=== PATIENT | male | born 1965 | race Caucasian/White ===

== ENCOUNTER 2017-10-20 15:56 | Emergency (ER) | payer OTHER, SELFPAY ==
[2017-10-20 15:57] VITALS: BP 127/74; PULSE 60; RESP 16; TEMP 36.6; O2SAT 98; BMI 30.9
--- NOTE | 2017-10-20 16:16 | VDLE_ITS ---
Reason For Study: pain RIGHT LEFT CFV is compressible, spontaneous, phasic, GSV is normal. competent and demonstrates normal CFV is compressible, spontaneous, phasic, augmentation. competent, and demonstrates normal Procedure augmentation. Exam performed portable in ED. FV is compressible, spontaneous, phasic, The exam was diagnostic. competent and demonstrates normal A preliminary report was called and/or faxed augmentation. to Dr. Uribe. POP V is compressible, spontaneous, phasic, competent and demonstrates normal augmentation. T/P Trunk is compressible. PTV is compressible. LT PerV is compressible. Interpretation Summary Deep veins of the left lower extremity are patent and compressible segmentally. There is no evidence of left lower extremity deep vein thrombosis. Valvular competence appears intact within the proximal deep venous system on the left . The left greater saphenous vein appears patent and compressible segmentally. Ordering Physician: Heydi Uribe Performed By: Avtar Cardenas RVT
--- NOTE | 2017-10-20 16:18 | ED.DCSUM_ITS ---
- ER Visit Summary Date of Service: 10/20/17 Chief Complaint: Left calf pain History of Present Illness: The patient is a 51 M presenting for left calf pain. He states this has been ongoing for the past 2 weeks. It is worsened when he stands. He has no known injury. He has had no recent long travel. He states he has traveled more recently, longest car ride approximately 3 hours. No known history of personal or family DVT/PE. No chest pain or shortness of breath. No fever. No other complaints. He went to urgent care and was advised to come to the ED for further evaluation. Physical Examination: Vitals are stable. Patient is afebrile. Alert no acute distress. HEENT exam is unremarkable. Neck is supple. Lungs are clear and equal bilaterally. Heart is regular rate and rhythm. Extremities mild left calf tenderness, normal distal pulses, no warmth or erythema Skin is warm and dry. No focal neurologic deficit. Remainder of exam is unremarkable. Emergency Department Course and Treatment: Venous Doppler left lower extremity shows no evidence of DVT. He is given a prescription for Flexeril. Advised to follow-up with Dr. 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 Advised return ED for worsening complaints. Disposition: Discharge home Impression: Left lower extremity pain This note was generated with [employer] dictation software. It may contain incorrect words, spelling, and punctuation that were not noted in review of the chart prior to signing ED Disposition - Plan for ED Patient: Disposition: Home or Assisted Living Chief Complaint: Lower Extremity Injury Instructions: ED Muscle Pain Leg Cramps Prescriptions: Cyclobenzaprine [Flexeril] 10 mg PO TID PRN #20 tablet PRN Reason: Muscle Spasm Referrals: Tc Nino MD [STAFF PHYSICIAN] -
--- NOTE | 2017-10-20 16:41 | ED.DEP ---
ED Disposition - Plan for ED Patient: Chief Complaint: Lower Extremity Injury Instructions: ED Muscle Pain Leg Cramps Prescriptions: Cyclobenzaprine [Flexeril] 10 mg PO TID PRN #20 tablet PRN Reason: Muscle Spasm Referrals: Tc Nino MD [STAFF PHYSICIAN] -
[2017-10-20 16:43] VITALS: BP 130/70; BP 130/75; PULSE 65; RESP 14; O2SAT 98; O2SAT 99
== END 2017-10-20 16:49 | disposition home or self-care (01) ==
PROVIDERS: Emergency Provider Emergency Medicine; Family Provider Family Medicine; PCP Family Medicine
DX: M79.662 Pain in left lower leg (principal)
CPT/HCPCS: 93971; 99282